=== PATIENT | female | born 1965 | race African-American/Black ===

== ENCOUNTER 2023-04-18 23:50 | Inpatient (IN) | payer MEDICAID ==
[~2023-04-18] VITALS: Ht 165.1 cm; Wt 49.9 kg
[2023-04-18 23:57] VITALS: BP 155/103; PULSE 89; RESP 14; TEMP 97.9; O2SAT 99
[2023-04-19] VITALS (8 sets, daily range): BP systolic 125–139; BP diastolic 72–87; PULSE 70–100; RESP 18; TEMP 97.6–98.4; O2SAT 97–100
[2023-04-19] MEDS ORDERED: PANTOPRAZOLE 40 MG INJ VIAL IVP ONE (00:15)
[2023-04-19 00:54] LABS: BASOPHILS % (AUTO) 0.3 % (0.0-2.0); EOSINOPHILS # (AUTO) 0.2 K/uL (0-0.4); EOSINOPHILS % (AUTO) 1.8 % (0.0-4.0); HEMATOCRIT 26.2 % (36-48); HEMOGLOBIN 9.1 g/dL (12.0-16.0); LYMPHOCYTES % (AUTO) 18.9 % (20.5-51.1); MEAN CORPUSCULAR HEMOGLOBIN 35 pg (27-31); MEAN CORPUSCULAR HGB CONC 35 g/dL (33-37); MEAN CORPUSCULAR VOLUME 100.2 fL (80-94); MONOCYTES # (AUTO) 0.7 K/uL (0.8-1.0); MONOCYTES % (AUTO) 6.4 % (1.7-9.3); NEUTROPHILS # (AUTO) 7.6 K/uL (1.8-7.7); NEUTROPHILS % (AUTO) 72.6 % (42.2-75.2); PLATELET COUNT (AUTO) 343 K/uL (140-450); RED BLOOD CELL COUNT(AUTO) 2.61 MIL/uL (4.20-5.40); RED CELL DISTRIBUTION WIDTH 15.3 % (11.6-13.7); WHITE BLOOD COUNT (AUTO) 10.5 K/uL (4.8-10.8)
[2023-04-19] MEDS ORDERED: MORPHINE SULFATE 4 MG/ML SYR IVP ONE (01:15)
[2023-04-19] MEDS ORDERED: ONDANSETRON 4 MG/2 ML VIAL IVP ONE (01:15)
[2023-04-19 01:20] LABS: ALBUMIN 2.9 g/dL (3.4-5.0); ANION GAP 14.7 (8-16); CALCIUM 8.2 mg/dL (8.5-10.1); CARBON DIOXIDE 25.1 mmol/L (21-32); CREATININE 0.8 mg/dL (0.6-1.3); POTASSIUM 3.8 mmol/L (3.5-5.1); TOTAL BILIRUBIN 0.3 mg/dL (0.0-1.0); TOTAL PROTEIN, SERUM 6.6 g/dL (6.4-8.2)
[2023-04-19] MEDS ORDERED: levETIRAcetam 500 MG in NACL 0.9% 100 ML IV ONE (01:35)
[2023-04-19] MEDS ORDERED: levETIRAcetam 100 MG/ML VIAL IV ONE ×2 (01:38→10:24)
[2023-04-19] MEDS ORDERED: BENA20TA PO (03:27)
[2023-04-19] MEDS ORDERED: METO25TE2 PO (03:27)
[2023-04-19] MEDS ORDERED: NACL 0.9% 1,000 ML IV SCH (04:25)
[2023-04-19] MEDS ORDERED: guaiFENesin DM 200/20 MG-10 ML 10 ML UDC PO PRN (04:25)
[2023-04-19] MEDS ORDERED: ACETAMINOPHEN 325 MG TAB PO PRN (04:25)
[2023-04-19] MEDS ORDERED: ZOLPIDEM 5 MG TAB PO PRN (04:25)
[2023-04-19] MEDS ORDERED: DOCUSATE SODIUM 100 MG GELCAP PO PRN (04:25)
[2023-04-19] MEDS ORDERED: HYDROcodone/APAP 7.5/325 MG 1 TAB PO PRN (04:25)
[2023-04-19] MEDS ORDERED: POTASSIUM CHLORIDE 10 MEQ TABER PO PRN (04:25)
[2023-04-19] MEDS ORDERED: ONDANSETRON 4 MG/2 ML VIAL IM/IVP PRN (04:25)
[2023-04-19] MEDS ORDERED: MORPHINE SULFATE 2 MG/ML SYR IVP PRN (08:05)
[2023-04-19] MEDS ORDERED: LORazepam 2 MG/ML VIAL IM/IVP PRN (08:05)
[2023-04-19] MEDS: NACL 0.9% 1,000 ML IV SCH ×2 (08:20→20:06)
[2023-04-19] MEDS ORDERED: PANTOPRAZOLE 40 MG INJ VIAL IVP SCH (09:00)
[2023-04-19] MEDS ORDERED: levETIRAcetam 500 MG in NACL 0.9% 100 ML IV SCH ×4 (09:00)
[2023-04-19] MEDS ORDERED: PANTOPRAZOLE 40 MG TABEC PO SCH (09:00)
[2023-04-19] MEDS: TAMSULOSIN 0.4 MG CAP PO SCH ×2 (09:00→20:05)
[2023-04-19] MEDS: METOPROLOL 25 MG TAB PO SCH (10:15)
[2023-04-19 13:45] LABS: APPEARANCE,URINE CLEAR (CLEAR); BILIRUBIN,URINE NEGATIVE (NEGATIVE); BLOOD, URINE TRACE-I (NEGATIVE); COLOR,URINE YELLOW (YELLOW); LEUKOCYTE ESTERASE ,URINE NEGATIVE (NEGATIVE); NITRITE, URINE NEGATIVE (NEGATIVE); PROTEIN,URINE NEGATIVE (NEGATIVE); UGLUCOSE NEGATIVE (NEGATIVE); UROBILINOGEN,URINE 0.2 EU/dL (0.2 - 1)
[2023-04-19 15:53] LABS: AMPHETAMINE, URINE NEGATIVE ng/ml (NEG <=1000); BARBITURATE, URINE NEGATIVE ng/ml (NEG <=200); BENZODIAZEPINE, URINE NEGATIVE ng/mL (NEG <=200); CANNABINOID, URINE NEGATIVE ng/mL (NEG <=50); COCAINE, URINE NEGATIVE ng/mL (NEG <=300); OPIATE, URINE POSITIVE ng/mL (NEG <=2000); PHENCYCLIDINE SCREEN,URINE NEGATIVE ng/mL (NEG <=25)
[2023-04-19] MEDS: bisacodyL 5 MG TABEC PO SCH ×2 (16:21→21:09)
[2023-04-19] MEDS: SUPREP BOWEL PREP KIT 354 ML SOLN.RECON PO SCH ×2 (16:26→21:10)
[2023-04-19] MEDS: PANTOPRAZOLE 40 MG INJ VIAL IVP SCH (20:05)
[2023-04-20] VITALS (7 sets, daily range): BP systolic 129–166; BP diastolic 74–97; PULSE 73–91; RESP 18–19; TEMP 97–97.8; O2SAT 97–100
[2023-04-20] MEDS: NACL 0.9% 1,000 ML IV SCH ×2 (04:09→14:20)
[2023-04-20] MEDS ORDERED: fentaNYL citrate 0.05 MG/ML VIAL ONE (07:05)
[2023-04-20] MEDS ORDERED: MIDAZOLAM 5 MG/5 ML VIAL ONE (07:05)
[2023-04-20 07:16] LABS: BASOPHILS % (AUTO) 0.3 % (0.0-2.0); EOSINOPHILS # (AUTO) 0.3 K/uL (0-0.4); EOSINOPHILS % (AUTO) 3.6 % (0.0-4.0); LYMPHOCYTES % (AUTO) 21.8 % (20.5-51.1); MEAN CORPUSCULAR HEMOGLOBIN 35 pg (27-31); MEAN CORPUSCULAR HGB CONC 35 g/dL (33-37); MEAN CORPUSCULAR VOLUME 101.9 fL (80-94); MONOCYTES # (AUTO) 0.8 K/uL (0.8-1.0); MONOCYTES % (AUTO) 8.2 % (1.7-9.3); NEUTROPHILS # (AUTO) 6.2 K/uL (1.8-7.7); NEUTROPHILS % (AUTO) 66.1 % (42.2-75.2); PLATELET COUNT (AUTO) 287 K/uL (140-450); RED CELL DISTRIBUTION WIDTH 14.5 % (11.6-13.7); WHITE BLOOD COUNT (AUTO) 9.3 K/uL (4.8-10.8)
[2023-04-20 07:17] LABS: INR 0.99 (0.8-1.2); PARTIAL THROMBOPLASTIN TIME 23.8 secs (22-35.6); PROTHROMBIN TIME 10.4 secs (10.8-13.4)
[2023-04-20 07:23] LABS: ANION GAP 11.8 (8-16); CARBON DIOXIDE 24.5 mmol/L (21-32); CREATININE 0.9 mg/dL (0.6-1.3); POTASSIUM 3.3 mmol/L (3.5-5.1)
[2023-04-20 07:38] LABS: HEMATOCRIT 19.4 % (36-48); HEMOGLOBIN 6.7 g/dL (12.0-16.0)
[2023-04-20] MEDS: MIDAZOLAM 2 MG/2 ML VIAL IVP SCH ×2 (07:56→08:35)
[2023-04-20] MEDS: fentaNYL citrate 0.05 MG/ML VIAL IVP SCH ×2 (07:57→08:35)
[2023-04-20] MEDS: PANTOPRAZOLE 40 MG INJ VIAL IVP SCH (09:00)
[2023-04-20] MEDS: TAMSULOSIN 0.4 MG CAP PO SCH ×2 (09:11→20:22)
[2023-04-20] MEDS: METOPROLOL 25 MG TAB PO SCH (09:12)
[2023-04-20 15:19] LABS: HEMATOCRIT 24.2 % (36-48); HEMOGLOBIN 8.3 g/dL (12.0-16.0)
[2023-04-20] MEDS: lisinopriL 10 MG TAB PO SCH (16:15)
[2023-04-21 05:50] LABS: BASOPHILS % (AUTO) 0.3 % (0.0-2.0); EOSINOPHILS # (AUTO) 0.5 K/uL (0-0.4); EOSINOPHILS % (AUTO) 6.3 % (0.0-4.0); HEMATOCRIT 22.7 % (36-48); HEMOGLOBIN 7.9 g/dL (12.0-16.0); LYMPHOCYTES # (AUTO) 1.3 K/uL (2.5-16.5); LYMPHOCYTES % (AUTO) 17.7 % (20.5-51.1); MEAN CORPUSCULAR HEMOGLOBIN 34 pg (27-31); MEAN CORPUSCULAR HGB CONC 35 g/dL (33-37); MEAN CORPUSCULAR VOLUME 96.9 fL (80-94); MONOCYTES # (AUTO) 0.7 K/uL (0.8-1.0); MONOCYTES % (AUTO) 10.1 % (1.7-9.3); NEUTROPHILS # (AUTO) 4.8 K/uL (1.8-7.7); NEUTROPHILS % (AUTO) 65.6 % (42.2-75.2); PLATELET COUNT (AUTO) 256 K/uL (140-450); RED BLOOD CELL COUNT(AUTO) 2.34 MIL/uL (4.20-5.40); RED CELL DISTRIBUTION WIDTH 16.5 % (11.6-13.7); WHITE BLOOD COUNT (AUTO) 7.2 K/uL (4.8-10.8)
[2023-04-21 06:13] LABS: CALCIUM 8.3 mg/dL (8.5-10.1); CARBON DIOXIDE 26.5 mmol/L (21-32); CREATININE 0.7 mg/dL (0.6-1.3); POTASSIUM 3.5 mmol/L (3.5-5.1)
[2023-04-21 08:00] VITALS: BP 154/76; PULSE 82; PULSE 83; RESP 18; TEMP 97.8; O2SAT 100
[2023-04-21 08:07] LABS: FOLIC ACID 8.7 ng/mL (>3.0)
[2023-04-21] MEDS: METOPROLOL 25 MG TAB PO SCH (08:56)
[2023-04-21] MEDS: TAMSULOSIN 0.4 MG CAP PO SCH (08:56)
[2023-04-21] MEDS: lisinopriL 10 MG TAB PO SCH (08:56)
[2023-04-21] MEDS ORDERED: FOLI1TAB90 PO (09:44)
[2023-04-21] MEDS ORDERED: THIA100T45 PO (09:44)
[2023-04-21] MEDS ORDERED: OMEP-278 PO (09:44)
[2023-04-21] MEDS ORDERED: FERR325E14 PO (09:44)
[2023-04-21] MEDS ORDERED: DOCU-299 PO (09:44)
[2023-04-21] MEDS ORDERED: TAMS0.4C96 PO (09:44)
[2023-04-21 15:59] VITALS: BP 154/76; PULSE 82; RESP 18; TEMP 97.8
[2023-04-21 16:00] VITALS: BP 154/76; PULSE 82; RESP 18; TEMP 208; O2SAT 100
[2023-04-21 16:07] VITALS: BP 154/76; PULSE 82; RESP 18; TEMP 97.8
== END 2023-04-21 16:54 | disposition home or self-care (01) | DRG 244 ==
LOC: MED 23:50 → MTU 04-19 04:27 → MMU 04-20 14:38
PROVIDERS: ADMIT Student in an Organized Health Care Education/Training Program; ATTEND Student in an Organized Health Care Education/Training Program
PROC: 30233N1 Transfusion of Nonautologous Red Blood Cells into Peripheral Vein, Percutaneous Approach (ICD-10-PCS; 2023-04-20)
PROC: 0DJD8ZZ Inspection of Lower Intestinal Tract, Via Natural or Artificial Opening Endoscopic (ICD-10-PCS; principal; 2023-04-20 07:30)
DX: K57.91 Diverticulosis of intestine, part unspecified, without perforation or abscess with bleeding (principal); E87.20 Acidosis, unspecified; E44.0 Moderate protein-calorie malnutrition; R56.9 Unspecified convulsions; D62 Acute posthemorrhagic anemia; N20.1 Calculus of ureter; K64.4 Residual hemorrhoidal skin tags; I10 Essential (primary) hypertension; Z88.0 Allergy status to penicillin; Z98.891 History of uterine scar from previous surgery; Z68.1 Body mass index [BMI] 19.9 or less, adult; F10.90 Alcohol use, unspecified, uncomplicated
CPT/HCPCS: 36415; 70450; 71045; 80048; 80053; 80305; 81003; 82607; 82746; 83540; 83605; 85018; 85025; 85610; 85730; 86886; 86900; 86901; 86920; 87040; 87081; 93005; 96365; 96375; 99285; C9113; J1953; J2250; J2270; J2405; J3010; J7030; P9016; Q0092